=== PATIENT | male | born 1990 | race Caucasian/White ===

== ENCOUNTER 2018-09-04 18:35 | Emergency (ER) | payer OTHER ==
[~2018-09-04] VITALS: Ht 177.8 cm; Wt 80.0 kg
[2018-09-04 18:40] VITALS: Ht 177.8 cm; Wt 80.0 kg
--- NOTE | 2018-09-04 20:41 | ERD ---
ER Documentation Chief Complaint Chief Complaint R index finger swelling x 2days HPI 27-year-old male, previously healthy, right-handed, presents the emergency department, complaining of right index finger pain, erythema and warmth after sustaining a blunt trauma at work 3 days ago. The patient denies fever, no chi lls. ROS All systems reviewed and are negative except as per history of present illness. Medications Home Meds Active Scripts Ibuprofen* (Motrin*) 400 Mg Tab, 400 MG PO Q6H PRN for PAIN AND OR ELEVATED TEMP, #20 TAB Prov:LUIS BOSTON MD 09/04/18 Cephalexin* (Keflex*) 500 Mg Capsule, 500 MG PO BID for 7 Days, CAP Prov:LUIS BOSTON MD 09/04/18 Sulfamethoxazole/Trimethoprim* (Bactrim Ds* Tablet) 1 Each Tablet, 1 TAB PO BID, #14 TAB Prov:LUIS BOSTON MD 09/04/18 Allergies Allergies: Coded Allergies: No Known Allergy (Unverified , 09/04/18) PMhx/Soc Medical and Surgical Hx: pt denies Medical Hx, pt denies Surgical Hx Hx Alcohol Use: No Hx Substance Use: No Hx Tobacco Use: No Smoking Status: Never smoker FmHx Family History: No diabetes, No coronary disease Physical Exam Vitals Vital Signs Date Temp Pulse Resp B/P (MAP) Pulse Ox O2 O2 Flow FiO2 Time Delivery Rate 09/04/18 98.0 68 20 139/65 98 Room Air 21:30 (89) 09/04/18 98.1 76 18 154/81 96 18:40 (105) Physical Exam Const: No acute distress Head: Atraumatic Eyes: Normal Conjunctiva ENT: Normal External Ears, Nose and Mouth. Neck: Full range of motion. No meningismus. Resp: Clear to auscultation bilaterally Cardio: Regular rate and rhythm, no murmurs Abd: Soft, non tender, non distended. Normal bowel sounds Skin: No petechiae or rashes Back: No midline or flank tenderness Ext: Right index finger: Periungual erythema and fluctuance, associated with tenderness to palpation. Otherwise, no cyanosis. Neur: Awake and alert Psych: Normal Mood and Affect Results 24 hrs DIAGNOSTIC IMAGING REPORT Patient: KELY ROSARIO : 1990 Age: 27 Sex: M MR #: [id number] [facility] #: [id number] DOS: 09/04/182038 Ordering MD: LUIS BOSTON MD Location: [facility] Room/Bed: PROCEDURE: XR Finger. CLINICAL INDICATION: Trauma. Right second finger pain. TECHNIQUE: Three views of the right second finger are available for review. COMPARISON: None available FINDINGS: There is no fracture or dislocation. The soft tissues are normal. Articular surfaces are intact. There is no lytic or blastic lesion. There is no radiopaque foreign body. IMPRESSION: 1. Unremarkable images of the right second finger. Procedures/MDM Differential diagnosis include but not limited to: Insect bite, traumatic injury, herpetic justin, dermoid cyst. Low suspicion for acute systemic infection. Physical examination and clinical presentation consistent most likely with paronychia of left index finger During the ED course the patient remained stable, no new complaints. Paronychia I&D The procedure was explained and consent obtained. The area was cleaned with iodine. A sterile drape and prep were done. The fluctuant area around the nail, was excised with an 18-gauge needle obtaining moderate amount of pus, the area was expressed and irrigated with normal saline. Antibiotic ointment was applied. The patient tolerated the procedure well. The patient is stable to be treated outpatient and will be discharged home with a Rx for Bactrim, Keflex and ibuprofen, some side effects of prescribed medications (headache, rash, nausea, vomiting, diarrhea, drowsiness, habituation, bleeding, hypertension, interactions with other medications) were reviewed. The patient was instructed to follow up with the primary care provider in the next 48h. If symptoms persist, worsen or new symptoms develop, then patient should return to the ED immediately. Instructions explained and given directly by me to the patient with acknowledgment and demonstrated understanding. Disclaimer: Inadvertent spelling and grammatical errors are likely due to EHR/dictation software use and do not reflect on the overall quality of patient care. Also, please note that the electronic time recorded on this note does not necessarily reflect the actual time of the patient encounter. Departure Diagnosis: Primary Impression: Injury of right index finger Additional Impression: Paronychia of left index finger Condition: Stable Patient Instructions: Crush Injury, Hand/Finger Additional Instructions: Thank you very much for allowing us to participate in your care. Your health and safety is our top priority at [facility]. Call your primary care doctor TOMORROW for an appointment during the next 2-4 days and bring all the information provided. Have prescriptions filled and follow precisely the directions on the label. If the symptoms get worse and your provider is unavailable, return to the Emergency Department immediately. LUIS BOSTON MD September 04, 2018 20:40
[2018-09-04] MEDS ORDERED: CEPH-443 PO (21:19)
[2018-09-04] MEDS ORDERED: IBUP-1561 PO (21:19)
[2018-09-04] MEDS ORDERED: SULF1TAB31 PO (21:19)
[2018-09-04 21:30] VITALS: BP 139/65; PULSE 68; RESP 20
== END 2018-09-04 21:35 | disposition home or self-care (01) ==
LOC: FTE 18:35
DX: S69.91XA Unspecified injury of right wrist, hand and finger(s), initial encounter (principal); L03.012 Cellulitis of left finger; X58.XXXA Exposure to other specified factors, initial encounter; Y92.89 Other specified places as the place of occurrence of the external cause
CPT/HCPCS: 10060; 73140; Z7502